=== PATIENT | female | born 1960 | race Caucasian/White ===

== ENCOUNTER 2017-02-06 17:54 | Emergency (ER) | payer OTHER | END 2017-02-06 21:10 | disposition home or self-care (01) | LOC: ED 17:54 | DX: S06.0X0A Concussion without loss of consciousness, initial encounter (principal); S00.411A Abrasion of right ear, initial encounter; V43.52XA Car driver injured in collision with other type car in traffic accident, initial encounter; X58.XXXA Exposure to other specified factors, initial encounter; Y92.410 Unspecified street and highway as the place of occurrence of the external cause ==